=== PATIENT | male | born 1980 | race Caucasian/White ===

== ENCOUNTER → 2021-02-12 09:29 | Outpatient (CLI) | payer OTHER, SELFPAY ==
[2021-02-12 19:54] LABS: Add Manual Diff / Slide Review NO; Basophils Absolute Auto 0 /uL (0-100); Basophils Percent Auto 0.3 % (0-2); Eosinophils Absolute Auto 200 /uL (0-450); Eosinophils Percent Auto 2.2 % (2-4); Hematocrit 47.4 % (41-53); Hemoglobin 16.4 g/dL (13.5-17.5); Lymphocytes Absolute Auto 2600 /uL (1100-4500); Lymphocytes Percent Auto 30.7 % (25-40); Mean Corpuscular HGB Conc 34.6 % (30-36); Mean Corpuscular Hemoglobin 30.1 PG (26-34); Mean Corpuscular Volume 87.1 fL (80-100); Monocytes Absolute Auto 800 /uL (0-900); Neutrophils Absolute Auto 4800 /uL (1500-7000); Neutrophils Percent Auto 57.8 % (50-75); Platelet Count 385 X10^3/uL (150-400); Red Blood Cell Count 5.45 X10^6/uL (4.5-5.9); Red Cell Distribution Width 13.4 % (11.6-14.8); White Blood Cell Count 8.3 X10^3/uL (4.5-11.0)
[2021-02-12 20:14] LABS: Alanine Aminotransferase 57 IU/L (<50); Albumin 4.5 g/dL (3.5-5.0); Albumin Globulin Ratio 1.5 (1.0-2.8); Alkaline Phosphatase 63 U/L (38-126); Aspartate Aminotransferase 39 IU/L (17-59); BUN Creatinine Ratio 10.2 (6-22); Bilirubin Total 0.5 mg/dL (0.2-1.3); Blood Urea Nitrogen 9 mg/dL (9-20); Calcium 9.9 mg/dL (8.4-10.2); Carbon Dioxide 30 mmol/L (22-32); Chloride 105 mmol/L (98-107); Cholesterol 233 mg/dL (140-199); Estimated Glomerular Filt Rate > 60.0 mL/min (>60); Globulin 3.1 g/dL (1.7-4.1); Glucose 92 mg/dL (70-100); HDL Cholesterol 37 mg/dL (40-60); HEMOLYSIS < 15 (0-50); LDL Cholesterol Calculated 131 mg/dL (<100); Potassium 4.4 mmol/L (3.4-5.1); Sodium 141 mmol/L (137-145); Total Protein 7.6 g/dL (6.3-8.2); Triglycerides 327 mg/dL (35-150)
[2021-02-12 20:22] LABS: Free T4, Direct Thyroxine 1.15 ng/dL (0.78-2.19)
[2021-02-12 20:24] LABS: Vitamin D 25 Hydroxy (D3) 44.9 ng/mL (30.0-100.0)
[2021-02-12 20:36] LABS: Thyroid Stimulating Hormone 0.727 uIU/mL (0.47-4.68)
[2021-02-20 05:44] LABS: Oxcarbazepin, Trileptal 4 ug/mL (10-35)
== END ==
PROVIDERS: PCP Physician Assistant
DX: F31.9 Bipolar disorder, unspecified (principal); F41.1 Generalized anxiety disorder
CPT/HCPCS: 80053; 80061; 80183; 82306; 83036; 84439; 84443; 85025

== ENCOUNTER → 2021-08-06 13:33 | Outpatient (CLI) | payer OTHER, SELFPAY ==
[2021-08-06 19:57] LABS: Add Manual Diff / Slide Review NO; Basophils Absolute Auto 0 /uL (0-100); Basophils Percent Auto 0.4 % (0-2); Eosinophils Absolute Auto 200 /uL (0-450); Eosinophils Percent Auto 1.6 % (2-4); Hematocrit 49.1 % (41-53); Hemoglobin 16.8 g/dL (13.5-17.5); Lymphocytes Absolute Auto 3000 /uL (1100-4500); Lymphocytes Percent Auto 31.1 % (25-40); Mean Corpuscular HGB Conc 34.2 % (30-36); Mean Corpuscular Volume 87.7 fL (80-100); Monocytes Absolute Auto 1000 /uL (0-900); Monocytes Percent Auto 10.5 % (3-14); Neutrophils Absolute Auto 5500 /uL (1500-7000); Neutrophils Percent Auto 56.4 % (50-75); Platelet Count 513 X10^3/uL (150-400); Red Cell Distribution Width 13.2 % (11.6-14.8); White Blood Cell Count 9.8 X10^3/uL (4.5-11.0)
[2021-08-06 20:19] LABS: Alanine Aminotransferase 82 IU/L (<50); Albumin Globulin Ratio 1.5 (1.0-2.8); Alkaline Phosphatase 71 U/L (38-126); Aspartate Aminotransferase 52 IU/L (17-59); BUN Creatinine Ratio 9.1 (6-22); Bilirubin Total 0.5 mg/dL (0.2-1.3); Blood Urea Nitrogen 8 mg/dL (9-20); Calcium 9.9 mg/dL (8.4-10.2); Carbon Dioxide 32 mmol/L (22-32); Chloride 101 mmol/L (98-107); Estimated Glomerular Filt Rate > 60 mL/min (>60); Globulin 3.3 g/dL (1.7-4.1); Glucose 74 mg/dL (70-100); HEMOLYSIS < 15 (0-50); Potassium 4.3 mmol/L (3.4-5.1); Sodium 140 mmol/L (137-145); Total Protein 8.3 g/dL (6.3-8.2)
[2021-08-06 20:39] LABS: TSH w/ Reflex to FT4 0.95 uIU/mL (0.47-4.68)
== END ==
PROVIDERS: PCP Physician Assistant; Visit Provider Physician Assistant
DX: R42 Dizziness and giddiness (principal)
CPT/HCPCS: 80053; 84443; 85025

== ENCOUNTER → 2021-09-10 13:35 | Outpatient (CLI) | payer OTHER, SELFPAY ==
[2021-09-10 20:50] LABS: Free T4, Direct Thyroxine 1.05 ng/dL (0.78-2.19)
== END ==
PROVIDERS: PCP Physician Assistant; Visit Provider Physician Assistant
DX: E03.9 Hypothyroidism, unspecified (principal); K76.0 Fatty (change of) liver, not elsewhere classified
CPT/HCPCS: 84439; 84443

== ENCOUNTER → 2022-03-12 13:56 | Outpatient (CLI) | payer OTHER, SELFPAY ==
[2022-03-12 20:37] LABS: Alanine Aminotransferase 96 IU/L (<50); Alkaline Phosphatase 65 U/L (38-126); Aspartate Aminotransferase 56 IU/L (17-59); BUN Creatinine Ratio 12.9 (6-22); Bilirubin Total 0.6 mg/dL (0.2-1.3); Blood Urea Nitrogen 11 mg/dL (9-20); Calcium 9.7 mg/dL (8.4-10.2); Carbon Dioxide 26 mmol/L (22-32); Chloride 102 mmol/L (98-107); Estimated Glomerular Filt Rate > 60 mL/min (>60); Glucose 110 mg/dL (70-100); HEMOLYSIS < 15 (0-50); Potassium 4.2 mmol/L (3.4-5.1); Sodium 141 mmol/L (137-145); Total Protein 8.1 g/dL (6.3-8.2)
[2022-03-13 17:11] LABS: Albumin Globulin Ratio 1.6 (1.0-2.8); Globulin 3.1 g/dL (1.7-4.1)
== END ==
PROVIDERS: PCP Physician Assistant; Visit Provider Physician Assistant
DX: E03.9 Hypothyroidism, unspecified (principal); K76.0 Fatty (change of) liver, not elsewhere classified
CPT/HCPCS: 80053

== ENCOUNTER → 2022-03-18 12:09 | Outpatient (CLI) | payer OTHER, SELFPAY ==
--- NOTE | 2022-03-18 12:10 | DI.US.S_ITS ---
PROCEDURE: US ABDOMEN LIMITED INDICATIONS: f/u fatty liver and eval for possible soft tissue mass TECHNIQUE: Real-time focused scanning was performed of the abdomen, with image documentation. Color Doppler was also utilized. COMPARISON: None. FINDINGS: The liver demonstrates normal size. The liver demonstrates generalized at least moderately increased echogenicity. This decreases ultrasound sensitivity for detection of hepatic masses. Status post cholecystectomy. There is no biliary dilatation, the common bile duct measures 4 mm. No significant pancreatic abnormality is seen on these images. Dedicated scanning is performed at the area of clinical concern involving the anterior abdominal wall, where there is a focus of heterogeneous soft tissue, which is hyperechoic to the surrounding normal fat and measures 1.1 x 0.7 x 1 4 cm. No abnormal vascularity can be seen within this region. IMPRESSION: At the area of clinical concern, there is a 1.4 cm focus within the subcutaneous fat. Based upon these images, this cannot be defined as a lipoma, although a lipoma remains within the differential. Given the prior history, differential diagnosis includes fat necrosis. Differential diagnosis also includes a soft tissue neoplasm, such as a sarcoma. - Please consider ultrasound-guided percutaneous biopsy, if clinically appropriate. Status post cholecystectomy, without biliary dilatation. The liver demonstrates increased echogenicity, which is attributed to fatty liver infiltration. Dictated by: Bronson Angela M.D. on 03/18/2022 at 12:46 Approved by: Bronson Angela M.D. on 03/18/2022 at 12:48
== END ==
PROVIDERS: PCP Physician Assistant; Referring Provider Physician Assistant; Visit Provider Physician Assistant
DX: R19.03 Right lower quadrant abdominal swelling, mass and lump (principal); K76.0 Fatty (change of) liver, not elsewhere classified; G47.00 Insomnia, unspecified; F31.9 Bipolar disorder, unspecified; Z90.49 Acquired absence of other specified parts of digestive tract
CPT/HCPCS: 76705

== ENCOUNTER → 2022-04-22 08:40 | Outpatient (CLI) | payer OTHER, SELFPAY ==
--- NOTE | 2022-04-22 | DI.US.S_ITS ---
PROCEDURE: US BIOPSY ABD OR RETROPERIT Ultrasound-guided right body wall lesion biopsy. INDICATIONS: SUB Q SUPERFICIAL MASS TECHNIQUE: The indications, alternatives, benefits, risks, and complications of the procedure were explained to the patient. Written informed consent was obtained and placed in the chart. Moderate sedation not performed. Real-time sonography was utilized to choose the site for percutaneous right body wall biopsy. The skin was prepped and draped in the usual sterile fashion. 1% lidocaine was infiltrated down to the site of interest. A coaxial needle was then advanced into the site of interest under direct sonographic visualization. A biopsy apparatus was then utilized, and core biopsies were obtained. The needle was then withdrawn; a bandage was applied to the biopsy site. COMPARISON: [facility], , US ABDOMEN LIMITED, 03/18/2022, 12:24. FINDINGS: Biopsy site(s): Right lateral lower body wall Needle: [employer] biopsy needle set. Number of passes: 4 Medications: 1% lidocaine for local anaesthesia. Complications: None. IMPRESSION: Successful ultrasound-guided right body wall lesion biopsy, with pathology results pending. Dictated by: Abran Wood M.D. on 04/22/2022 at 10:48 Approved by: Abran Wood M.D. on 04/22/2022 at 10:57
--- NOTE | 2022-04-22 | PATH_ITS ---
[facility] Accession Number: [id number] No. of containers..01 Tissue . 01 Material submitted: . abdomen - RIGHT LOWER ABDOMINAL WALL LUMP . 01 Diagnosis: Right Lower Abdominal Wall Lump, Biopsy: Findings most consistent with angiolipoma, see microscopic description. Negative for significant atypia and malignancy. MRV 04/29/2022 1817 Local . 01 Comment: As part of ongoing quality system manager, this case is also reviewed by Dr. Esther Corrigan, who agrees with the interpretation. . 01 Electronically signed: . Marychuy Randle MD, Pathologist NPI- [id number] . 01 Gross description: . RIGHT LOWER ABDOMINAL WALL LUMP: Received in formalin are 4 fragment(s) of martínez, soft tissue measuring 0.6 x 0.1 x 0.1 cm to 0.9 x 0.1 x 0.1 cm submitted entirely in 1 cassette(s) /ANSHUL 04/22/2022 2319 Local . 01 Microscopic: . Microscopic examination reveals mature adipocytes intimately admixed with small blood vessels, without significant cytologic atypia or mitotic activity. Immunostains were performed for further evaluation with the following results: S100, SOX-10 and Smooth Muscle Actin immunostains are negative, arguing against a neural or muscle component and the proliferation marker Ki67 is low, 2-3%. . A spindle cell lipoma was considered; however, not favored as CD34 immunostain highlighted the small blood vessels. Fibromatosis was also in the differential, however, not favored as beta-catenin was negative for nuclear staining. . 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 . Clinical and radiologic correlation is recommended. . * This test was developed and its performance characteristics determined by [facility]. It has not been cleared or approved by the [place]. Food and Drug Administration. The FDA has determined that such clearance or approval is not necessary. This test is used for clinical purposes. It should not be regarded as investigational or for research. . 01 Pathologist provided ICD-10: D17.1, R19.01 . 01 CPT . 579797, E79640, [id number] Performed at: 01 [facility] [address] [place] [address], [place], [place] [id number] MD Adebayo Solis MD Phone: [phone]
== END ==
PROVIDERS: PCP Physician Assistant; Referring Provider Physician Assistant; Visit Provider Physician Assistant
DX: R19.01 Right upper quadrant abdominal swelling, mass and lump (principal)
CPT/HCPCS: 49180; 76942

== ENCOUNTER → 2022-05-25 14:22 | Outpatient (CLI) | payer OTHER, SELFPAY ==
[2022-05-25 20:07] LABS: Alanine Aminotransferase 102 IU/L (<50); Albumin 4.7 g/dL (3.5-5.0); Albumin Globulin Ratio 1.4 (1.0-2.8); Alkaline Phosphatase 62 U/L (38-126); Aspartate Aminotransferase 67 IU/L (17-59); BUN Creatinine Ratio 12.5 (6-22); Bilirubin Total 0.6 mg/dL (0.2-1.3); Blood Urea Nitrogen 10 mg/dL (9-20); Calcium 9.6 mg/dL (8.4-10.2); Carbon Dioxide 28 mmol/L (22-32); Chloride 100 mmol/L (98-107); Estimated Glomerular Filt Rate > 60 mL/min (>60); Globulin 3.3 g/dL (1.7-4.1); Glucose 104 mg/dL (70-100); HEMOLYSIS < 15 (0-50); Potassium 4.4 mmol/L (3.4-5.1); Sodium 138 mmol/L (137-145)
== END ==
PROVIDERS: PCP Physician Assistant; Visit Provider Physician Assistant
DX: K76.0 Fatty (change of) liver, not elsewhere classified (principal)
CPT/HCPCS: 80053

== ENCOUNTER → 2022-09-02 13:27 | Outpatient (CLI) | payer OTHER, SELFPAY ==
[2022-09-02 19:33] LABS: Add Manual Diff / Slide Review NO; Basophils Absolute Auto 0 /uL (0-100); Basophils Percent Auto 0.3 % (0-2); Eosinophils Absolute Auto 100 /uL (0-450); Eosinophils Percent Auto 1.8 % (2-4); Hematocrit 44.6 % (41-53); Hemoglobin 15.7 g/dL (13.5-17.5); Lymphocytes Absolute Auto 2000 /uL (1100-4500); Lymphocytes Percent Auto 27.1 % (25-40); Mean Corpuscular HGB Conc 35.1 % (30-36); Mean Corpuscular Hemoglobin 30.5 PG (26-34); Mean Corpuscular Volume 86.8 fL (80-100); Monocytes Absolute Auto 800 /uL (0-900); Monocytes Percent Auto 10.3 % (3-14); Neutrophils Absolute Auto 4500 /uL (1500-7000); Neutrophils Percent Auto 60.5 % (50-75); Platelet Count 375 X10^3/uL (150-400); Red Blood Cell Count 5.14 X10^6/uL (4.5-5.9); Red Cell Distribution Width 13.3 % (11.6-14.8); White Blood Cell Count 7.5 X10^3/uL (4.5-11.0)
[2022-09-02 20:12] LABS: TSH w/ Reflex to FT4 0.79 uIU/mL (0.47-4.68)
[2022-09-03 19:50] LABS: x Labcorp Estim. Avg Glu (eAG) 108 mg/dL (.); x Labcorp Hemoglobin A1c 5.4 % (4.8-5.6)
== END ==
PROVIDERS: PCP Physician Assistant; Visit Provider Physician Assistant
DX: R74.8 Abnormal levels of other serum enzymes (principal); E03.9 Hypothyroidism, unspecified
CPT/HCPCS: 83036; 84443; 85025

== ENCOUNTER → 2022-11-19 13:58 | Outpatient (CLI) | payer OTHER, SELFPAY ==
[2022-11-19 20:03] LABS: Alanine Aminotransferase 84 IU/L (<50); Albumin 4.8 g/dL (3.5-5.0); Albumin Globulin Ratio 1.5 (1.0-2.8); Alkaline Phosphatase 61 U/L (38-126); Aspartate Aminotransferase 50 IU/L (17-59); BUN Creatinine Ratio 12.5 (6-22); Bilirubin Total 0.5 mg/dL (0.2-1.3); Blood Urea Nitrogen 10 mg/dL (9-20); Calcium 10.4 mg/dL (8.4-10.2); Carbon Dioxide 28 mmol/L (22-32); Chloride 100 mmol/L (98-107); Estimated Glomerular Filt Rate > 60 mL/min (>60); Globulin 3.3 g/dL (1.7-4.1); Glucose 117 mg/dL (70-100); HEMOLYSIS 15 (0-50); Potassium 4.4 mmol/L (3.4-5.1); Sodium 138 mmol/L (137-145); Total Protein 8.1 g/dL (6.3-8.2)
[2022-11-19 20:14] LABS: LDL Cholesterol Direct 158 mg/dL (<100)
== END ==
PROVIDERS: PCP Family Medicine; Visit Provider Family Medicine
DX: E78.1 Pure hyperglyceridemia (principal)
CPT/HCPCS: 80053; 83721

== ENCOUNTER → 2022-12-07 10:54 | Outpatient (CLI) | payer OTHER, SELFPAY ==
[2022-12-07 19:33] LABS: Add Manual Diff / Slide Review NO; Basophils Absolute Auto 0 /uL (0-100); Basophils Percent Auto 0.5 % (0-2); Eosinophils Absolute Auto 200 /uL (0-450); Eosinophils Percent Auto 1.9 % (2-4); Hematocrit 48.6 % (41-53); Hemoglobin 16.9 g/dL (13.5-17.5); Lymphocytes Absolute Auto 2300 /uL (1100-4500); Lymphocytes Percent Auto 25.2 % (25-40); Mean Corpuscular HGB Conc 34.8 % (30-36); Mean Corpuscular Hemoglobin 30.7 PG (26-34); Mean Corpuscular Volume 88.1 fL (80-100); Monocytes Absolute Auto 800 /uL (0-900); Monocytes Percent Auto 8.8 % (3-14); Neutrophils Absolute Auto 5700 /uL (1500-7000); Neutrophils Percent Auto 63.6 % (50-75); Platelet Count 412 X10^3/uL (150-400); Red Blood Cell Count 5.52 X10^6/uL (4.5-5.9)
[2022-12-07 19:40] LABS: Erythrocyte Sedimentation Rate 1 MM/HR (0-15)
[2022-12-07 19:42] LABS: C-Reactive Protein Quant 0.8 mg/dL (<1.0); Creatine Kinase 100 U/L (55-170)
[2022-12-07 19:55] LABS: Vitamin D 25 Hydroxy (D3) 46.3 ng/mL (30.0-100.0)
[2022-12-07 19:57] LABS: Monotest Negative (Negative)
[2022-12-07 20:13] LABS: Ferritin 57 ng/mL (18-464)
[2022-12-10 17:21] LABS: Calcium 10.5 mg/dL (8.7-10.2); Parathyroid Hormone, Intact 16 pg/mL (15-65)
== END ==
PROVIDERS: PCP Family Medicine; Visit Provider Family Medicine
DX: E83.52 Hypercalcemia (principal); M79.10 Myalgia, unspecified site; R53.1 Weakness
CPT/HCPCS: 82306; 82310; 82550; 82728; 83970; 85025; 85651; 86140; 86318

== ENCOUNTER → 2022-12-19 08:09 | Outpatient (CLI) | payer OTHER, SELFPAY ==
[2022-12-19 09:31] LABS: Alanine Aminotransferase 72 IU/L (<50); Albumin 4.6 g/dL (3.5-5.0); Albumin Globulin Ratio 1.4 (1.0-2.8); Alkaline Phosphatase 53 U/L (38-126); Aspartate Aminotransferase 45 IU/L (17-59); BUN Creatinine Ratio 16.5 (6-22); Bilirubin Total 0.3 mg/dL (0.2-1.3); Blood Urea Nitrogen 14 mg/dL (9-20); Calcium 9.3 mg/dL (8.4-10.2); Carbon Dioxide 25 mmol/L (22-32); Chloride 104 mmol/L (98-107); Estimated Glomerular Filt Rate > 60 mL/min (>60); Globulin 3.2 g/dL (1.7-4.1); Glucose 113 mg/dL (70-100); HEMOLYSIS 17 (0-50); Potassium 3.9 mmol/L (3.4-5.1); Sodium 138 mmol/L (137-145); Total Protein 7.8 g/dL (6.3-8.2)
[2022-12-19 10:14] LABS: Vitamin B12 Reflex MMA if <400 548 pg/mL (239-931)
[2022-12-21 13:38] LABS: Ionized Calcium 4.6 mg/dL (4.5-5.6)
[2022-12-22 03:37] LABS: RPR Screen Non Reactive (Non Reactive)
[2022-12-22 13:36] LABS: Albumin 3.7 g/dL (2.9-4.4); Alpha-1-Globulin 0.2 g/dL (0.0-0.4); Alpha-2-Globulin 0.6 g/dL (0.4-1.0); Gamma Globulin 1.1 g/dL (0.4-1.8); Globulin Total 3.1 g/dL (2.2-3.9); Protein, Total 6.8 g/dL (6.0-8.5)
[2022-12-22 18:36] LABS: Free Kappa Lt Chains, Serum 10.7 mg/L (3.3-19.4); Free Lambda Lt Chains,Serum 6.8 mg/L (5.7-26.3)
[2022-12-28 15:47] LABS: Vitamin A 49.3 ug/dL (20.1-62.0)
[2022-12-30 13:25] LABS: Treponema pallidum Antibodies Non Reactive
== END ==
PROVIDERS: PCP Family Medicine; Referring Provider Family Medicine; Visit Provider Family Medicine
DX: H53.2 Diplopia (principal); R51.9 Headache, unspecified; R29.90 Unspecified symptoms and signs involving the nervous system; G25.3 Myoclonus; R53.1 Weakness; G62.9 Polyneuropathy, unspecified; R74.8 Abnormal levels of other serum enzymes; E83.52 Hypercalcemia; M79.10 Myalgia, unspecified site
CPT/HCPCS: 36415; 80053; 82330; 82397; 82607; 83883; 84155; 84165; 84590; 86592; 86780